=== PATIENT | female | born 1955 | race Caucasian/White ===

== ENCOUNTER → 2023-08-21 | Outpatient (CLI) | payer MEDICARE ==
--- NOTE | 2023-08-22 10:49 | MR ---
EXAMINATION TYPE: MR pelvis wo/w con DATE OF EXAM: 08/21/2023 10:32 AM CLINICAL INDICATION:Female, 67 years old with history of R20.2 PARESTHESIA OF SKIN, Pain, loss of sen sation in cervix and bladder. COMPARISON: None TECHNIQUE: Triplane multisequence imaging was performed of the pelvis. IV Contrast: 7.5 cc Gadavist FINDINGS: Reproductive: Vagina: Unremarkable. Uterus: The uterus is anteverted in position. Uterus measures 6.1 x 3.5 x 4.5 cm. The endometrium and junctional zone are within normal limits. Scattered low T2 signal r fibroids are present largest an teriorly in the fundus measuring up to 17 mm. There is various degrees of enhancement of the fibroids . Multiple nabothian cysts are seen in the lower uterine segment. Ovaries: Follicular changes are noted to the ovaries. Right ovary measures 17 x 16 x 15 mm. Left ovary measures larger with a 19 and 20 mm cyst present. Ov abdoul in totality measures 3.9 x 2.2 x 3.1 cm. Bladder: Urinary bladder is nondistended. No evidence for mass. Bowel: Unremarkable as visualized. Peritoneum: A small amount of free fluid in the pelvis. Lymph nodes: No evidence of adenopathy. Vasculature: Unremarkable. Musculoskeletal: Bone marrow signal is within normal signal intensity. The visualized portions of the osseous structures are without evidence for bone marrow edema. There is degeneration changes of the lower spine. The visualized neural foramen appear patent. Abdominal wall/soft tissues: Unremarkable. IMPRESSION: 1. No evidence of suspicious pelvic mass. 2. Fibroid uterus. 3. Left ovarian cysts measuring up to 20 mm. 4. Endometrium within normal limits for thickness.
== END | disposition home or self-care (01) ==
LOC: RADMRIMAIN 09:05
PROVIDERS: ATTEND Obstetrics & Gynecology
DX: D25.9 Leiomyoma of uterus, unspecified (principal); N83.202 Unspecified ovarian cyst, left side; R20.2 Paresthesia of skin
CPT/HCPCS: 72197; A9585